=== PATIENT | female | born 1970 | race African-American/Black ===

== ENCOUNTER 2017-12-18 11:54 | Day surgery (SDC) | payer OTHER ==
[2017-12-03 11:10] VITALS: BMI 45.4
[2017-12-18] MEDS ORDERED: MIDAZOLAM HCL 2 MG/2 ML SINGLE DOSE VIAL ONE (14:36)
[2017-12-18] MEDS ORDERED: PROPOFOL 20 ML ONE (14:56)
[2017-12-18 15:36] VITALS: TEMP 97.5
[2017-12-18] MEDS ORDERED: PROMETHAZINE HCL 25 MG/1 ML VIAL IVPUSH PRN (15:51)
[2017-12-18] MEDS ORDERED: ONDANSETRON 4 MG/2 ML VIAL IVPUSH PRN (15:51)
[2017-12-18] MEDS ORDERED: oxyCODONE HCL 5 MG TABLET PO PRN ×2 (15:51)
[2017-12-18] MEDS ORDERED: LACTATED RINGERS SOLUTION 1,000 ML IV SCH (16:00)
[2017-12-18 16:15] VITALS: BP 136/80; PULSE 72
--- NOTE | 2017-12-19 13:36 | OP ---
DATE OF OPERATION: 12/18/2017 PREOPERATIVE DIAGNOSIS: Right carpal tunnel syndrome. POSTOPERATIVE DIAGNOSIS: Right carpal tunnel syndrome. OPERATIVE PROCEDURE: Right carpal tunnel release. ANESTHESIA: Local with sedation. COMPLICATIONS: None. ESTIMATED BLOOD LOSS: Minimal. INDICATIONS FOR PROCEDURE: The patient is a 47-year-old female with above findings indicated for operative treatment. Risks, benefits, and alternatives were discussed with the patient at length, and proper informed consent was obtained. Of note, prior to the procedure, the patient inquired whether the surgery would get rid of all of her symptoms in her arms and shoulders, and I again discussed with her what carpal tunnel syndrome is and what the surgery was going to accomplish and that it would most likely not relieve any of her symptoms there. I also discuss what the classic carpal tunnel symptoms are and that I hoped that these symptoms would be relieved in her but I also could not guarantee this. She stated an understanding and desired to proceed with the surgery. DESCRIPTION OF PROCEDURE: After proper identification of patient and correct operative site, the patient was brought to the operating room and placed supine on the table, prominences well padded. Sedation was given by the anesthesiologist. Local anesthesia was given with 2% lidocaine. Right upper extremity was prepped and draped in the usual sterile fashion. A well-padded tourniquet was placed with a sterile prep. Esmarch bandage used to exsanguinate the right upper extremity. Tourniquet was inflated to 250 mmHg. A longitudinal incision was made at the proximal aspect of the palm. Incision was taken sharply through the skin with sharp and blunt dissection through the subcutaneous tissues. Palmar fascia was divided longitudinally. The transverse carpal ligament was divided longitudinally along with the distal 4 cm of the antebrachial fascia under direct visualization with loupe magnification. The median nerve had a slight hourglass deformity to it and a hyperemic response once released. The transcarpal ligament was quite thickened. The flexor tendon appeared or. The wound was then irrigated with amounts and repaired with a 5-0 nylon suture. Sterile dressings were applied. The patient was reversed from sedation and brought to the recovery room in stable condition. She tolerated the procedure well. Gil [id number]
== END 2017-12-18 16:30 | disposition home or self-care (01) ==
LOC: FASU 11:54
PROVIDERS: ATTEND Orthopaedic Surgery Hand Surgery
PROC: 01N50ZZ Release Median Nerve, Open Approach (ICD-10-PCS; principal; 2017-12-18 15:02)
DX: G56.01 Carpal tunnel syndrome, right upper limb (principal); I10 Essential (primary) hypertension; E78.00 Pure hypercholesterolemia, unspecified; J45.909 Unspecified asthma, uncomplicated; M19.90 Unspecified osteoarthritis, unspecified site; F41.9 Anxiety disorder, unspecified; F32.9 Major depressive disorder, single episode, unspecified
CPT/HCPCS: 84703